=== PATIENT | male | born 1935 | race Caucasian/White ===

== ENCOUNTER 2020-01-25 14:27 | Emergency (ER) | payer OTHER ==
[~2020-01-25] VITALS: Ht 182.9 cm; Wt 102.3 kg
[2020-01-25 14:29] VITALS: BP 174/95
== END 2020-01-25 15:02 | disposition home or self-care (01) ==
LOC: EMS 14:32
DX: Z20.828 Contact with and (suspected) exposure to other viral communicable diseases (principal); I10 Essential (primary) hypertension